=== PATIENT | male | born 1960 | race Caucasian/White ===

== ENCOUNTER → 2018-11-30 | Outpatient (CLI) | payer BC ==
--- NOTE | 2018-11-30 16:07 | US ---
EXAMINATION TYPE: US prostate transrectal DATE OF EXAM: 11/30/2018 COMPARISON: NONE CLINICAL HISTORY: N40.1 benign prostatic hypertrophy without outflow. This examination was performed using the transrectal probe. EXAM MEASUREMENTS: Gland Size: 4.3 x 2.1 x 4.4cm Volume: 20.8 Predicted PSA: 2.4 Actual PSA (if available):0.7 Some calcification may be within the left lobe prostate. IMPRESSION: 1. No suspicious hypoechoic lesions Predicted PSA = volume x 0.12 ng/ml Calculated Volume = 0.5236 x L x W x H
== END | disposition home or self-care (01) ==
LOC: RADUSMAIN 07:37
PROVIDERS: ATTEND Family Medicine
DX: N40.1 Benign prostatic hyperplasia with lower urinary tract symptoms (principal)
CPT/HCPCS: 76872